=== PATIENT | female | born 1990 | race Two or more races ===

== ENCOUNTER 2023-10-25 10:57 | Emergency (ER) | payer OTHER ==
--- NOTE | 2023-10-25 13:25 | ED Physician Documentation ---
PD HPI URI - Stated complaint Stated Complaint: SINUS PX - Chief complaint Chief Complaint: Heent - History obtained from History obtained from: Patient - History of Present Illness Timing - onset: How many weeks ago (3) Timing duration: Weeks (3) Timing details: Gradual onset Pain level max: 4 Pain level now: 4 Associated symptoms: No: Fever, Chills, Chest pain - Additional information Additional information: 33-year-old female presents to the emergency department with sinus congestion and pain for the past 3 weeks. Has been on decongestants without relief. No fevers. She states feels like prior sinus infections. Has had a mild, dry cough. Mild sore throat. Review of Systems Constitutional: denies: Fever, Chills GI: denies: Vomiting : denies: Now [facility] PAST MEDICAL HISTORY - Past Medical History Past Medical History: Yes Cardiovascular: None Respiratory: None Neuro: None Endocrine/Autoimmune: None GI: None [employer]: None : None HEENT: None Psych: None Musculoskeletal: None Derm: None - Past Surgical History Past Surgical History: No - Present Medications Home Medications: Ambulatory Orders Medication Instructions Recorded Confirmed Doxycycline [Vibramycin] 100 mg PO BID #14 tablet 10/25/23 - Allergies Allergies/Adverse Reactions: Allergies Allergy/AdvReac Type Severity Reaction Status Date / Time codeine Allergy Rash Verified 10/25/23 11:33 Penicillins Allergy Rash Verified 10/25/23 11:33 - Social History Does the pt smoke?: No Smoking Status: Never smoker Does the pt drink ETOH?: No Does the pt have substance abuse?: No - Immunizations Immunizations are current?: Yes - POLST Patient has POLST: No PD ED PE NORMAL - Vitals Vital signs reviewed: Yes - General General: Alert and oriented X 3, No acute distress - HEENT HEENT: PERRL, Ears normal, Moist mucous membranes, Pharynx benign, Other (Nasal turbinate swelling bilaterally with mucopurulent discharge from the bilateral nares Tender to palpation over the frontal and maxillary sinuses) - Neck Neck: Supple, no meningeal sign, No adenopathy - Cardiac Cardiac: RRR, Strong equal pulses - Respiratory Respiratory: No respiratory distress, Clear bilaterally - Abdomen Abdomen: Soft, Non tender, Non distended - Derm Derm: Warm and dry - Neuro Neuro: Alert and oriented X 3 - Psych Psych: Normal mood, Normal affect Results - Vitals Vitals: Vital Signs - 24 hr 10/25/23 10/25/23 11:34 13:42 Temperature 37.1 C Heart Rate 60 68 Respiratory 16 18 Rate Blood Pressure 120/73 130/82 H O2 Saturation 100 98 Oxygen O2 Source Room air PD Medical Decision Making - ED course Complexity details: considered differential, d/w patient ED course: 33-year-old female with what appears to be acute sinusitis. Will place on doxycycline now she is allergic to penicillin. She is well-appearing, nontoxic. Afebrile. Patient will continue decongestants at home. Patient counseled regarding signs and symptoms for which I believe and urgent re-evaluation would be necessary. Patient with good understanding of and agreement to plan and is comfortable going home at this time This document was made in part using voice recognition software. While efforts are made to proofread this document, sound alike and grammatical errors may occur. Departure - Departure Disposition: 01 Home, Self Care Clinical Impression: Acute sinusitis Qualifiers: Sinusitis location: unspecified location Recurrence: non-recurrent Qualified Code(s): J01.90 - Acute sinusitis, unspecified Condition: Good Instructions: ED Sinusitis Abx Tx Follow-Up: your,doctor in 1 week if not better [Other] Prescriptions: Doxycycline [Vibramycin] 100 mg PO BID #14 tablet Comments: Your prescription was sent to [facility] in [place]. Please follow-up with your doctor for further care if not better in 1 week. Please return if you worsen. Please take all antibiotics until gone. Forms: PCP List Discharge Date/Time: 10/25/23 13:42
[2023-10-25 13:43] VITALS: BP 130/82; O2SAT 98
== END 2023-10-25 13:42 | disposition home or self-care (01) ==
LOC: ED 10:57
DX: J01.90 Acute sinusitis, unspecified (principal)
CPT/HCPCS: 99282; 99283